=== PATIENT | female | born 1990 ===

== ENCOUNTER → 2020-11-06 | Outpatient (CLI) | payer OTHER ==
[2020-11-09 03:08] LABS: CHLAMYDIA TRACHOMATIS, NAA Negative (Negative)
== END | disposition home or self-care (01) ==
LOC: LAB SHORT 09:53
PROVIDERS: Family Medicine
DX: Z01.419 Encounter for gynecological examination (general) (routine) without abnormal findings (principal)
CPT/HCPCS: 87491; 87591; G0123